=== PATIENT | male | born 1985 | race Caucasian/White ===

== ENCOUNTER 2021-01-23 16:36 | Emergency (ER) | payer OTHER, SELFPAY ==
--- NOTE | ~2021-01-23 | XR_ITS ---
XR chest 1V portable DATE: 01/23/2021 17:44 INDICATION: Cough and congestion. Covid-positive. TECHNIQUE: Portable upright AP chest on 01/23 2021 at 1733 hours COMPARISON: None FINDINGS: Normal heart size. No hilar or mediastinal enlargement. There is mild infiltrate or atelect asis in the left retrocardiac area, left lower lobe. Otherwise no pulmonary infiltrate or consolidati on, pleural effusion or pulmonary vascular congestion or pneumothorax. IMPRESSION: Mild infiltrate or atelectasis in the left lower lobe retrocardiac area Reviewed, dictated and finalized at location A.
[2021-01-23 17:05] VITALS: BP 129/72; PULSE 88; RESP 18; TEMP 36.6; O2SAT 100
[2021-01-23] MEDS: SODIUM CHLORIDE 0.9% IV 1,000 ML 999 ML IV CONT (17:05)
[2021-01-23 17:09] VITALS: BP 128/85; PULSE 97; RESP 20; TEMP 38.3; O2SAT 98
[2021-01-23 17:35] LABS: Alveolar/Arterial O2 Gradient 30.7 mmHg; Base Excess ABG 0.2 mmol/L (0-2); Fractional Inspired Oxygen 21 %; HCO3 ABG 23.5 mmol/L (23-29); Oxygen Content ABG 21.5 %vol (16.0-22.0); Oxygen Saturation ABG 95.7 % (95-97); PCO2 ABG 34.6 mmHg (35-45); PO2 ABG 77.6 mmHg (80-90); Total Hemoglobin 16.1 g/dL (12.0-18.0); pH ABG 7.45 (7.35-7.45)
[2021-01-23 17:36] LABS: Device ROOM AIR; Hematocrit 46.3 % (40.0-54.0); Hemoglobin 15.7 g/dL (14.0-18.0); Mean Corpuscular HGB Conc 33.9 g/dL (32.0-36.0); Mean Corpuscular Hemoglobin 28.7 pg (27.0-31.0); Mean Corpuscular Volume 84.6 fL (78.0-102.0); Mean Platelet Volume 10.3 fl (8.7-11.0); Modified Allen's Test Pass; Platelet Count Result 145 K/mm3 (150-420); Red Blood Count 5.47 M/mm3 (4.70-6.10); Red Cell Distribution Width 11.9 % (11.6-14.4); Site Drawn RIGHT RADIAL; White Blood Count 3.7 K/mm3 (4.8-10.8)
[2021-01-23 17:50] LABS: Alanine Aminotransferase 34 U/L (16-63); Albumin Level 3.7 g/dL (3.4-5.0); Alkaline Phosphatase 85 U/L (46-116); Anion Gap 11 mmol/L (8-16); Aspartate Amino Transferase 25 U/L (15-37); Bilirubin,Total 0.4 mg/dL (0.00-1.00); Blood Urea Nitrogen 11 mg/dL (7-18); Calcium 8.4 mg/dL (8.5-10.1); Carbon Dioxide 27 mmol/L (21-32); Chloride 102 mmol/L (98-108); Estimated CRCL calculation 80 ml/min; Estimated Glomerular Filt Rate > 60; Glucose 94 mg/dL (70-99); Osmolality Calculated 289 mOsm/kg (285-295); Potassium 3.8 mmol/L (3.5-5.1); Sodium 140 mmol/L (136-145); Total Protein 7.3 g/dL (6.4-8.2)
[2021-01-23] MEDS: ACETAMINOPHEN 500 MG TABLET 1000 MG PO (17:53)
[2021-01-23 17:55] VITALS: BP 134/79; PULSE 89; RESP 19; O2SAT 99
[2021-01-23 18:06] LABS: Basophils Percent Manual 0 % (0-1); Eosinophils Absolute Manual 0.07 K/mm3 (0.02-0.5); Eosinophils Percent Manual 2 % (1-6); Lymphocytes Absolute Manual 0.85 K/mm3 (1.1-4.5); Lymphocytes Percent Manual 23 % (18-44); Monocytes Absolute Manual 0.44 K/mm3 (0.1-0.90); Monocytes Percent Manual 12 % (3-9); Neutrophils Percent Manual 63 % (46-73); Platelet Estimate Adequate (Adequate); Total Cells Counted 100
[2021-01-23] MEDS: ALBUTEROL SULFATE (*SP) INHALER 2 PUFF INHALATION (18:10)
--- NOTE | 2021-01-23 18:14 | ED.SOB ---
HPI - SOB/Dyspnea General Chief Complaint: Shortness of Breath/Dyspnea Stated Complaint: COVID+,cough,back pain,trouble breathing Source: patient Mode of arrival: ambulatory Limitations: no limitations History of Present Illness HPI Narrative: this is a 35-year-old male that presents with some cough and congestion with body aches after he was diagnosed with COVID, the patient failed to receive his vaccination, currently not short of breath no chest pain does have for subjective fever and chills at home with body aches but currently afebrile. There is no nausea vomiting no abdominal pain no chest pain no dysuria. MD elicited complaint: cough Pertinent past history: other ( COVID positive) Onset (ago): day(s) Context: recent illness Related Data Allergies Allergy/AdvReac Type Severity Reaction Status Date / Time No Known Allergies Allergy Verified 01/23/21 17:18 Review of Systems Review of Systems: All systems reviewed & are unremarkable except as noted in HPI and below PMFSH Past Medical History Medical History Patient denies medical problems Social History Social History Gender identity (if verbalized by the patient): Male Exam Const: General: no acute distress and alert Orientation/consciousness: patient oriented x3 HENMT: Head: normal to inspection Eyes: Conjunctivae: conjunctivae normal Pupils: Equal, round and reactive pupils present Neck: Neck: normal visual inspection, no lymphadenopathy and no meningeal signs Chest: Chest palpation & inspection: normal inspection of the chest Resp: Effort & Inspection: normal respiratory effort Auscultation: clear to auscultation bilaterally Cardio: Rate: regular rate Rhythm: regular rhythm GI: GI Palp: Yes Soft to palpation Urinary Catheter: Urinary Catheter: patent and draining Skin: General skin exam: normal color Rashes: no rashes Neuro: General: patient oriented x3, moves all extremities, no meningeal signs and no focal motor deficits Extrem: General: normal to inspection and no pedal edema Psych: Mental Status: mental status grossly normal Affect: normal affect Thought content: Yes Normal thought content present Course Course Emergency Course: patient is stable his O2 sats 100% on room air, reviewed his chest x-ray and lab findings will give the dose of ceftriaxone and ProAir. Advised to drink plenty of fluids Tylenol as needed and follow-up with primary care physician if symptoms persist or worsen. Vital Signs Vital signs: Vital Signs Temperature 36.6 C 01/23/21 17:05 Pulse Rate 88 01/23/21 17:05 Respiratory Rate 18 01/23/21 17:05 Blood Pressure 129/72 01/23/21 17:05 Pulse Oximetry 100 01/23/21 17:05 Temperature 38.3 C H 01/23/21 17:09 Pulse Rate 89 01/23/21 17:55 Respiratory Rate 19 01/23/21 17:55 Blood Pressure 134/79 01/23/21 17:55 Pulse Oximetry 99 01/23/21 17:55 MDM - SOB/Dyspnea Lab Data Result diagrams: 01/23/21 17:20 01/23/21 17:20 Labs: Lab Results 01/23/21 01/23/21 Range/Units 17:20 17:20 WBC 3.7 L (4.8-10.8) K/mm3 RBC 5.47 (4.70-6.10) M/mm3 Hgb 15.7 (14.0-18.0) g/dL Hct 46.3 (40.0-54.0) % MCV 84.6 (78.0-102.0) fL MCH 28.7 (27.0-31.0) pg MCHC 33.9 (32.0-36.0) g/dL RDW 11.9 (11.6-14.4) % Plt Count 145 L (150-420) K/mm3 MPV 10.3 (8.7-11.0) fl Immature Gran % (Auto) Not Reportable Neut % (Auto) Not Reportable Lymph % (Auto) Not Reportable [place] % (Auto) Not Reportable Eos % (Auto) Not Reportable Baso % (Auto) Not Reportable Lymph # (Auto) Not Reportable [place] # (Auto) Not Reportable Eos # (Auto) Not Reportable Baso # (Auto) Not Reportable Abs Immat Gran (auto) Not Reportable Absolute Neuts (auto) Not Reportable Absolute Nucleated RBC Not Reportable
[2021-01-23 18:49] VITALS: BP 114/81; PULSE 66; RESP 16; TEMP 36.6; O2SAT 98
== END 2021-01-23 18:59 | disposition home or self-care (01) ==
PROVIDERS: Emergency Provider Emergency Medicine; PCP Family Medicine
DX: J06.9 Acute upper respiratory infection, unspecified (principal); U07.1 COVID-19
CPT/HCPCS: 36415; 36600; 71045; 80053; 82805; 85025; 85060; 96361; 96365; 99283; 99284; A9270; J0696; J7030

== ENCOUNTER 2022-10-27 10:13 | Emergency (ER) | payer OTHER, SELFPAY ==
--- NOTE | ~2022-10-27 | XR_ITS ---
EXAMINATION: XR clavicle LT DATE: 10/27/2022 10:44 INDICATION: Left clavicle pain. Fall. TECHNIQUE: 2 views of left clavicle were obtained. COMPARISON: None. FINDINGS: Bone alignment is normal. No fracture. Joint spaces are normal. Coracoclavicular interval i s normal. IMPRESSION: 1. Normal left clavicle. Reviewed, dictated and finalized at location L. IMPRESSION: 1. Normal left clavicle.
--- NOTE | ~2022-10-27 | XR_ITS ---
EXAMINATION: XR_CERV2-3V_CR DATE: 10/27/2022 10:44 INDICATION: Left-sided neck pain. Fall. TECHNIQUE: 3 views of cervical spine were obtained. COMPARISON: None. FINDINGS: There is 5 degrees levocurvature of cervicothoracic spine. Vertebral body heights and inter vertebral disc heights are normal. There is multilevel mild uncovertebral joint osteoarthritis. There is moderate to severe facet joint osteoarthritis at C7-T1. No central canal stenosis or prevertebral soft tissue swelling. IMPRESSION: 1. Mild cervical spondylosis. Reviewed, dictated and finalized at location L.
--- NOTE | 2022-10-27 10:16 | ED.UPPEXIN ---
HPI - Extremity Injury (Upper) General Chief Complaint: Extremity Injury, Upper Stated Complaint: wc;lt shoulder Time Seen by Provider: 10/27/22 10:58 Source: patient and RN notes reviewed Mode of arrival: ambulatory Limitations: no limitations History of Present Illness HPI narrative: 37-year-old male presents concern for left shoulder injury. Reports today he was on a ladder when his boot got caught, he reached with his left hand to catch himself from falling pulling his left shoulder. He reports pain starts in the left side of the neck, goes to the left clavicle inch posterior shoulder area. The shoulder joint is not painful. He reports it hurts to raise the arm above the shoulder, hurts to turn the neck. He denies midline cervical tenderness, weakness in any extremity, open skin, bruising, swelling, warmth. MD complaint: injury to: left and shoulder Related Data Allergies Allergy/AdvReac Type Severity Reaction Status Date / Time No Known Allergies Allergy Verified 10/27/22 10:21 Review of Systems Review of Systems: CONSTITUTIONAL: Denies malaise, chills, sweats, or fever. SKIN: Denies rash or itching, open skin, laceration, abrasion, redness, warmth, swelling. MUSCULOSKELETAL: Reports left shoulder and clavicle pain, left neck pain NEUROLOGIC: Denies numbness, weakness All systems reviewed & are unremarkable except as noted in HPI and below PMFSH Past Medical History Medical History Patient denies medical problems Social History Social History Gender identity (if verbalized by the patient): Male Comments At time of signature, agree with nursing past medical, surgical, social and family history. There is no relevant family history pertinent to the presenting complaint Exam Narrative: GENERAL: Well-appearing, well-nourished, and in no acute distress. HEAD: Normocephalic, atraumatic. EYES: PERRLA, conjunctivae clear NECK: Supple. CHEST: Speaks in full sentences. No respiratory distress. HEART: Regular rate and rhythm. Normal and equal peripheral pulses. EXTREMITIES: Left upper extremity has normal strength and sensation, limited range of motion. No edema or ecchymosis. Normal sensation with sensitivity to light touch and pain. Clavicular tenderness. No midline cervical tenderness. No open wounds, no skin tenting, no devitalized tissue or atrophy, no trophic changes, no obvious deformity, alignment normal, nearby joints and structures intact. Distal pulses palpable and equal bilaterally, skin warm, dry, pink. Capillary refill less than 3 seconds. SKIN: Warm, dry, no rash. NEURO: Alert and oriented x3. PSYCH: Normal mood and affect Course Course Emergency Course: Patient is aware of diagnosis, understands and agrees to treatment plan. Anticipatory guidance given. Patient agrees to follow-up as directed and is aware of reasons to seek care at the emergency department. Portions of this record may have been created with voice recognition software Level of Care: Express Care Visit Vital Signs Vital signs: Reviewed. MDM - Extremity Injury (Upper) MDM Narrative Medical decision making narrative: Patients injury and pain is consistent with musculoskeletal etiology. No signs of neurological or vascular compromise on exam. Compartments and tissues are soft without signs of compartment syndrome. Pain is felt appropriate for further evaluation on an outpatient basis. Imaging Data Radiologist's impression: EXAMINATION: XR_CERV2-3V_CR DATE: 10/27/2022 10:44 INDICATION: Left-sided neck pain. Fall. TECHNIQUE: 3 views of cervical spine were obtained. COMPARISON: None. FINDINGS: There is 5 degrees levocurvature of cervicothoracic spine. Vertebral body heights and intervertebral disc heights are normal. There is multilevel mild uncovertebral joint osteoarthritis. There is moderate to severe fac
[2022-10-27 10:21] VITALS: BP 146/87; PULSE 93; RESP 16; TEMP 36.4; O2SAT 100
== END 2022-10-27 11:11 | disposition home or self-care (01) ==
PROVIDERS: Emergency Provider Nurse Practitioner; PCP Family Medicine
DX: S46.912A Strain of unspecified muscle, fascia and tendon at shoulder and upper arm level, left arm, initial encounter (principal); W11.XXXA Fall on and from ladder, initial encounter
CPT/HCPCS: 72040; 73000; 99214; G0463

== ENCOUNTER 2025-03-13 22:55 | Emergency (ER) | payer SELFPAY ==
--- NOTE | ~2025-03-13 | CT_ITS ---
CT ABDOMEN AND PELVIS WITHOUT CONTRAST Clinical History: LEFT flank pain Comparison: None Technique: Unenhanced axial images lung bases to symphysis pubis Coronal, sagittal reformats CT images acquired with automatic exposure control for dose reduction DLP: 359 mGy-cm Findings: Without intravenous contrast, sensitivity for detecting visceral parenchymal abnormalities decreased. Lung bases: Calcified granuloma right middle lobe. Right hilar calcifications Visualized heart and pericardium: Unremarkable. Liver: Unremarkable. Gallbladder: Unremarkable. Spleen: Unremarkable. Pancreas: Unremarkable. Adrenal glands: Unremarkable. Kidneys: Right kidney- No hydronephrosis. No renal stones. Left kidney- Hydronephrosis. 4 mm stone mid ureter No renal stones. Distal esophagus/stomach: Unremarkable. Small bowel loops: Normal caliber and wall thickness. Colon: Normal caliber and wall thickness. Prominent appendicolith. Nodes: No enlarged nodes. Peritoneum: No ascites. No free intraperitoneal air. Urinary bladder: Unremarkable. Prostate: Unremarkable. Bones: No acute bony abnormality. Soft tissues: Unremarkable. Unopacified abdominal aorta: No aneurysmal dilatation. IMPRESSION: 1. Left kidney hydronephrosis due to 4 mm mid ureteral stone. Reviewed, dictated and finalized at location R.
[2025-03-13 23:00] VITALS: BP 110/92; PULSE 68; RESP 20; TEMP 36.9; O2SAT 100
[2025-03-13] MEDS: SODIUM CHLORIDE 0.9% IV 1,000 ML 150 ML IV CONT (23:04)
[2025-03-13] MEDS: ONDANSETRON INJ 4 MG/2 ML VIAL IV PUSH (23:05)
[2025-03-13] MEDS: MORPHINE SULFATE (*CRX) 4 MG/ML INJ IV PUSH (23:05)
[2025-03-13] MEDS: SODIUM CHLORIDE 0.9% IV 1,000 ML 999 ML IV CONT (23:10)
[2025-03-13 23:11] LABS: Hematocrit 49.0 % (40.0-54.0); Hemoglobin 16.7 g/dL (14.0-18.0); Immature Granulocyte Percent A 0.3 % (0.0-0.0); Lymphocytes Absolute Auto 4.67 K/mm3 (1.10-4.50); Mean Corpuscular HGB Conc 34.1 g/dL (32-36); Mean Corpuscular Hemoglobin 28.6 pg (27.0-31.0); Mean Corpuscular Volume 84.0 fL (78.0-102.0); Nucleated Red Blood Cells Absolute Auto 0.00 K/mm3 (0.00-0.00); Nucleated Red Blood Cells Perc 0.0 % (0-0.0); Platelet Count Result 298 K/mm3 (150-420); Red Blood Count 5.83 M/mm3 (4.70-6.10); White Blood Count 11.8 K/mm3 (4.8-10.8)
[2025-03-13] MEDS: HYDROmorphone HCL INJ (*CRX) 2 MG/ML VIAL 1 MG IV PUSH (23:21)
[2025-03-13] MEDS: KETOROLAC 30 MG/ML VIAL (*BKC) IV PUSH (23:26)
[2025-03-13 23:29] LABS: Alanine Aminotransferase 33 U/L (6-50); Albumin Level 4.5 g/dL (3.5-5.1); Alkaline Phosphatase 69 U/L (38-126); Anion Gap 10 mmol/L (4-12); Aspartate Amino Transferase 39 U/L (17-59); Bilirubin,Total 0.7 mg/dL (0.2-1.3); Blood Urea Nitrogen 13 mg/dL (9-20); Calcium 9.5 mg/dL (8.4-10.2); Carbon Dioxide 25 mmol/L (22-30); Chloride 105 mmol/L (98-107); Estimated CRCL calculation 87 ml/min; Estimated Glomerular Filt Rate > 60; Glucose 129 mg/dL (65-110); Lipase 165 U/L (23-300); Osmolality Calculated 292 mOsm/kg (285-295); Potassium 4.0 mmol/L (3.4-5.0); Sodium 140 mmol/L (137-145); Total Protein 8.2 g/dL (6.3-8.2)
--- NOTE | 2025-03-13 23:45 | ED_ITS ---
HPI - Abdominal Pain General Chief Complaint: Urogenital-Male Stated Complaint: left flank pain Time Seen by Provider: 03/13/25 22:58 Source: patient Mode of arrival: ambulatory Limitations: no limitations History of Present Illness HPI narrative: 39-year-old otherwise healthy here with a complaint of sudden onset of left flank pain which started about have her ago. Patient states for the past few days he has been having intermittent upper abdominal pain and started having pain in the flank area which woke him up from sleep he denies any nausea, vomiting. no urinary symptoms. No previous history of kidney stones Related Data Allergies Allergy/AdvReac Type Severity Reaction Status Date / Time No Known Allergies Allergy Verified 03/13/25 22:57 Review of Systems 2 Review of Systems: All systems reviewed & are unremarkable except as noted in HPI and below Constitutional: Constitutional: Reports no additional constitutional complaints Eyes: Eyes: Reports no additional eye complaints ENT: Reports system reviewed and no additional complaints, except as documented Cardiovascular: Cardiovascular: Reports no additional cardiovascular complaints Respiratory: Respiratory: Reports no additional respiratory complaints Gastrointestinal: Gastrointestinal: Reports as per HPI Musculoskeletal: Musculoskeletal: Reports no additional musculoskeletal complaints Neurologic: Reports system reviewed and no additional complaints, except as documented PMFSH Past Medical History Medical History Patient denies medical problems Social History Social History Gender identity (if verbalized by the patient): Male Exam 2 Narrative: GENERAL: Well-appearing, well-nourished, and in moderate distress secondary to pain HEAD: Normocephalic, atraumatic. EYES: PERRLA and EOMI. ENT: Nares clear, no rhinorrhea or epistaxis. Mucous membranes moist. NECK: Supple. CHEST: Clear to auscultation. No respiratory distress. HEART: Regular rate and rhythm. No murmur heard. Normal peripheral pulses. ABDOMEN: Soft, nontender, nondistended, normal active bowel sounds. EXTREMITIES: Normal range of motion. No edema. SKIN: Warm, dry, no rash. NEURO: No focal deficits. Alert and oriented x3. PSYCH: Normal mood and affect. Course Course Emergency Course: he was given morphine which made no difference in his pain and did give him hydromorphone and Toradol finally his Pain ease the pain he was able to talk. pain is resolved informed him about his CT findings , advised him to follow with Urology if he is unable to pass it in next few days. Vital Signs Vital signs: Vital Signs Temperature 36.9 C 03/13/25 23:00 Pulse Rate 68 03/13/25 23:00 Respiratory Rate 20 03/13/25 23:00 Blood Pressure 110/92 H 03/13/25 23:00 Pulse Oximetry 100 03/13/25 23:00 Oxygen Delivery Room Air 03/13/25 23:00 Temperature 36.9 C 03/13/25 23:00 Pulse Rate 68 03/13/25 23:00 Respiratory Rate 20 03/13/25 23:00 Blood Pressure 110/92 H 03/13/25 23:00 Pulse Oximetry 100 03/13/25 23:00 Oxygen Delivery Room Air 03/13/25 23:00 MDM - Abdominal Pain Differential Diagnosis Differential diagnosis: Likely calculus of kidney and diverticulitis Medical Records Attestation: I reviewed the patient's medical records. Lab Data Attestation: I reviewed the patient's lab results. 03/13/25 23:02 03/13/25 23:02 Labs: Lab Results 03/13/25 03/14/25 Range/Units 23:02 00:22 WBC 11.8 H (4.8-10.8) K/mm3 RBC 5.83 (4.70-6.10) M/mm3 Hgb 16.7 (14.0-18.0) g/dL Hct 49.0 (40.0-54.0) % MCV 84.0 (78.0-102.0) fL MCH 28.6 (27.0-31.0) pg MCHC 34.1 (32-36) g/dL RDW 12.2 (11.6-14.4) % Plt Count 298 (150-420) K/mm3 MPV 10.0 (8.7-11.0) fl Immature Gran % (Auto) 0.3 H (0.0-0.0) % Neut % (Auto) 49.7 L (50.0-70.0) % Lymph % (Auto) 39.7 (18.0-42.0) % [place] % (Auto) 7.0 (2.0-11.0) % Eos % (Auto) 2.6 (1.0-6.0) % Baso % (Auto) 0.7 (0.0-1.0) % Lymph # (Auto) 4.67 H (1.10-4.50) K/mm3 [place] # (Auto) 0.82 (0.10-0.90) K/mm3 Eos # (Auto) 0.31 (0.02-0.50) K/mm3 Baso # (Auto) 0.08 (0.00-0.10) K/mm3 Abs Immat Gran (auto) 0.03 H (0.00-0.00) K/mm3 Absolute Neuts (auto) 5.86 (1.70-7.20) K/mm3 Absolute Nucleated RBC 0.00 (0.00-0.00) K/mm3 Nucleated RBC % 0.0 (0-0.0) % Sodium 140 (137-145) mmol/L Potassium 4.0 (3.4-5.0) mmol/L Chloride 105 (98-107) mmol/L Carbon Dioxide 25 (22-30) mmol/L Anion Gap 10 (4-12) mmol/L BUN 13 (9-20) mg/dL Creatinine 1.28 (0.7-1.3) mg/dL Estim Creat Clear Calc 87 ml/min Estimated GFR > 60 (59 - ) Glucose 129 H (65-110) mg/dL Calculated Osmolality 292 (285-295) mOsm/kg Calcium 9.5 (8.4-10.2) mg/dL Total Bilirubin 0.7 (0.2-1.3) mg/dL AST 39 (17-59) U/L ALT 33 (6-50) U/L Alkaline Phosphatase 69 (38-126) U/L Total Protein 8.2 (6.3-8.2) g/dL Albumin 4.5 (3.5-5.1) g/dL Lipase 165 (23-300) U/L Urine Color Yellow (Yellow) Urine Appearance Clear (Clear) Urine pH 7.5 (5.0-8.0) Ur Specific [place] 1.010 (1.010-1.020) Urine Protein Negative (Negative) Urine Glucose (UA) Negative (Negative) Urine Ketones Negative (Negative) Ur Blood (Man) 2+ H (Negative) Urine Nitrate Negative (Negative) Urine Bilirubin Negative (Negative) Urine Urobilinogen 0.2 (0.2-1.0) mg/dL Ur Leukocyte Esterase Negative (Negative) Urine RBC 21-50 H (0-2) /hpf Urine WBC 0-3 (0-3) /hpf Ur Squamous Epith Cells Rare (Few) /hpf Urine Bacteria Trace (None) /hpf Imaging Data Radiologist's impression: CT of the abdomen and pelvis without contrast shows left hydro ureteral nephrosis with 4 mm calculus in mid ureter Discharge Plan Discharge Clinical Impression: Ureterolithiasis Patient Disposition: Home Condition: Stable Instructions: Ureteral Stones (ED) Additional Instructions: drink more fluids , take pain meds , follow with urology Patient Language: [place] Prescriptions: New hydrocodone-acetaminophen 5-325 mg tablet 1 tablet PO Q6H PRN (Reason: pain) Qty: 14 0RF tamsulosin [Flomax] 0.4 mg capsule 0.4 mg PO DAILY Qty: 7 0RF Follow-up/Referrals: Dann,Boyd Jaramillo MD [Primary Care Provider] Amadeo Griffin MD [Physician, Urology] Time of Disposition: 01:22
[2025-03-13 23:46] VITALS: BP 127/74; PULSE 61; RESP 16; O2SAT 95
[2025-03-14] VITALS (8 sets, daily range): BP systolic 101–129; BP diastolic 55–83; PULSE 61–69; RESP 11–17; TEMP 36.4; O2SAT 92–97
--- NOTE | 2025-03-14 00:28 | PC.NURSE ---
Pt voided approx 200 mL cloudy dark yellow urine for needed specimen. No stone observed. Pt states pain is tolerable at this time and encouraged to notify nurse if pain starts to increase. Pt voices no needs at this time. Spouse at bedside. Specimen taken to lab and lab personnel aware of specimen.
[2025-03-14 00:45] LABS: Add Urine Microscopic? YES; Appearance Urine Clear (Clear); Glucose Urine UA Negative (Negative); Leukocyte Esterase Ur Negative (Negative); Nitrate Urine Negative (Negative); Specific Grav Ur 1.010 (1.010-1.020)
--- NOTE | 2025-03-14 01:35 | PC.NURSE ---
Pt reports pain is starting to come back. ERP aware and will give dose of oxycodone here prior to discharge pt agreeable. Pt provided with urinal, strainer, and specimen cup for discharge verbalized understanding of use.
[2025-03-14] MEDS: oxyCODONE/ACETAMINOPHEN (*CRX) 5-325 MG TABLET 1 TABLET PO (01:55)
== END 2025-03-14 02:00 | disposition home or self-care (01) ==
PROVIDERS: Emergency Provider Family Medicine; PCP Family Medicine
DX: N20.1 Calculus of ureter (principal)
CPT/HCPCS: 36415; 74176; 80053; 81001; 83690; 85025; 96361; 96374; 96375; 99284; A9270; J1171; J1885; J2270; J2405; J7030